=== PATIENT | female | born 1970 | race Caucasian/White ===

== ENCOUNTER → 2019-06-16 11:05 | Outpatient (BNVA) | payer OTHER, SELFPAY | PROVIDERS: Family Provider Nurse Practitioner Family; PCP Nurse Practitioner Family; Visit Provider Obstetrics & Gynecology | DX: N92.1 Excessive and frequent menstruation with irregular cycle (principal); N94.6 Dysmenorrhea, unspecified; I10 Essential (primary) hypertension | CPT/HCPCS: 82728; 83540; 83550; 84443; 85027 ==

== ENCOUNTER → 2019-06-27 14:53 | Outpatient (BNVA) | payer OTHER, SELFPAY | PROVIDERS: Family Provider Nurse Practitioner Family; PCP Nurse Practitioner Family; Visit Provider Obstetrics & Gynecology | DX: N92.0 Excessive and frequent menstruation with regular cycle (principal); N94.6 Dysmenorrhea, unspecified; N94.10 Unspecified dyspareunia | CPT/HCPCS: 76830; 76856 ==

== ENCOUNTER → 2019-10-06 11:12 | Outpatient (BNVA) | payer OTHER, SELFPAY | PROVIDERS: Family Provider Nurse Practitioner Family; PCP Nurse Practitioner Family; Visit Provider Obstetrics & Gynecology | DX: Z12.4 Encounter for screening for malignant neoplasm of cervix (principal) | CPT/HCPCS: 88175 ==

== ENCOUNTER 2019-11-07 13:39 | Observation (INO) | payer MEDICARE, SELFPAY ==
[2019-11-03 10:20] VITALS: BMI 34.3
[2019-11-03 10:42] LABS: Add Urine Microscopic? NO
[2019-11-03 10:52] LABS: Basophils # 0.1 10^3/uL (0.0-0.1); Basophils % 0.9 %; Eosinophils # 0.2 10^3/uL (0.0-0.8); Eosinophils % 1.5 %; Hematocrit 41.6 % (37.0-47.0); Hemoglobin 13.4 g/dL (11.5-15.3); Lymphocytes # 3.1 10^3/uL (0.8-4.8); Lymphocytes % 29.7 %; Mean Corpuscular HGB Conc 32.2 g/dL (30.0-36.0); Mean Corpuscular Hemoglobin 31.1 pg (28.0-34.0); Mean Corpuscular Volume 96.5 fL (81-99); Mean Platelet Volume 9.9 fL (7.4-10.4); Monocytes # 0.5 10^3/uL (0.2-0.9); Neutrophils # 6.61 10^3/uL (1.8-7.7); Neutrophils % 62.7 %; Nucleated Red Blood Cells % 0 %; Platelet Count 386 10^3/cmm (130-400); Red Blood Count 4.31 10^6/uL (4.1-5.3); Red Cell Distribution Width 13.3 % (12.1-15.1); White Blood Count 10.5 10^3/uL (4.0-10.0)
[2019-11-03 11:06] LABS: Bilirubin Urine Neg (NEGATIVE); Blood Urine Neg (Negative); Glucose Urine UA Norm (Normal); Ketones Urine Negative (Negative); Leukocyte Esterase Urine Negative (Negative); Nitrate Urine Negative (Negative); OR HCG Qualitative Urine Negative (Negative); Protein Urine Neg (Negative); Specific Gravity, Urine 1.005 (1.005-1.030); Urine Appearance Clear (CLEAR); Urine Color Yellow (Yellow); Urobilinogen Urine Norm (Negative); pH Urine 7 (5-7)
[2019-11-07] VITALS (21 sets, daily range): BP systolic 93–130; BP diastolic 58–81; PULSE 73–102; RESP 8–20; TEMP 36.2–36.9; O2SAT 93–100
[2019-11-07] MEDS: sodium chloride 0.9% 1,000 ML 30 ML IV (08:24)
[2019-11-07] MEDS: ketorolac 30 mg/mL INJ IVP ×2 (08:33→14:34)
--- NOTE | 2019-11-07 08:33 | P.ANESUD_ITS ---
Pre-Anesthetic Update Pre-Anesthetic Assessment: Date of Surgery/Procedure: 11/07/19 Preop Leonie gnosis: Uterine fibroid, Menorrhagia, Dysmenorrhea Proposed Procedure: Operation Date: 11/07/19 09:10 Proposed Procedures p Total Laparoscopic Hysterectomy 74792 D25.9 N92.9(Not Applicable) - Sameer Hatfield MD s Laparoscopic Salpingo Oophorectomy(Bilateral) - MD liz Ash Total Abdominal Hysterectomy(Not Applicable) - Sameer Hatfield MD Any changes to Pre-Anesthetic Assessment?: No Last Intake: Intake Last Liquid Date 11/07/19 Last Liquid Time 06:30 Last Solid Date 11/06/19 Last Solid Time 20:00 Vitals: Temperature 97.9 F 11/07/19 08:10 Temperature Source Temporal Artery S can 11/07/19 08:10 Pulse Rate 84 11/07/19 08:10 Respiratory Rate 16 11/07/19 08:10 Blood Pressure 93/74 11/07/19 08:10 Blood Pressure Estee n 80 11/07/19 08:10 Pulse Oximetry 98 11/07/19 08:10 Oxygen Delivery Me thod 11/07/19 08:10 Exam: Pre-Anes Outpt Exam: alert, oriented x 3, clear to auscultation bilaterally and regular rate & rhythm Cardiac Studies: No Data to Display
[2019-11-07] MEDS: phenazopyridine 100 mg Tablet 200 MG PO ×3 (08:47→20:10)
--- NOTE | 2019-11-07 09:33 | P.HPUD_ITS ---
Surgery/Procedure H&P Update DATE OF PROCEDURE: November 07, 2019 DATE H&P PERFORMED: 11/03/19 H&P UPDATE INFORMATION: I have reviewed H&P completed within last 30 days, I have examined patient prior to procedure, No changes to prior documentation and [place] [facility] [place] PREOP DIAGNOSIS: Uterine fibroid, Menorrhagia, Dysmenorrhea PLANNED PROCEDURE: Operation Date: 11/07/19 09:10 Proposed Procedures p Total Laparoscopic Hysterectomy 75959 D25.9 N92.9(Not Applicable) - MD liz Ash Laparoscopic Salpingo Oophorectomy(Bilateral) - MD liz Ash Total Abdominal Hysterectomy(Not Applicable) - Sameer Hatfield MD Related Problem List Diagnoses (1) Uterine fibroid: Qualifiers: Uterine leiomyoma location: intramural Qualified Code(s): D25.1 - Intramural leiomyoma of uterus (2) Menorrhagia: Qualifiers: Menorrahagia type: with irregular cycle Qualified Code(s): N92.1 - Excessive and frequent menstruation with irregular cycle (3) Dysmenorrhea:
--- NOTE | 2019-11-07 09:42 | P.ANESASSM_ITS ---
Pre-Anesthetic Assessment Pre-Anesthetic Assessment: Height/Weight: Height 1.52 m Weight 79.832 kg Temp Pulse Resp BP Pulse Ox 97.9 F 84 16 93/74 98 11/07/19 08:10 11/07/19 08:10 11/07/19 08:10 11/07/19 08:10 11/07/19 08:10 Preop Diagnosis: Uterine fibroid, Menorrhagia, Dysmenorrhea Proposed Procedure: Operation Date: 11/07/19 09:10 Proposed Procedures p Total Laparoscopic Hysterectomy 81832 D25.9 N92.9(Not Applicable) - Sameer Hatfield MD s Laparoscopic Salpingo Oophorectomy(Bilateral) - Sameer Hatfield MD s Total Abdominal Hysterectomy(Not Applicable) - Sameer Hatfield MD Familial anesthetic complications: None Was Beta Clemencia taken within 24 hours: N/A Last intake: Intake Last Liquid Date 11/07/19 Last Liquid Time 06:30 Last Solid Date 11/06/19 Last Solid Time 20:00 Social: Social History: No alcohol and No tobacco Exam: Pre-Anes Outpt Exam: alert, oriented x 3, clear to auscultation bilaterally and regular rate & rhythm Airway: Cervical ROM: Other (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) MP: 3 Dentition: Chipped Pulmonary: Pulmonary: None reported CV/HEM: CV/HEM: HTN : : None reported Hepatic: Hepatic: None reported GI: GI: None reported Metabolic: Metabolic: Morbid obesity Musc/skel: Musc/skel: None reported Neuropsych: Neuropsych: Seizure Comments: arnold chiari I - unable hyperextension Headaches from chirari and double vision sometimes d/t intracranial HTN Anesthetic Plan: ASA status: 3 Anesthesia: General Risk of > 500 ml blood loss (7ml/kg in children): No Meds/Allergies Current Medications: Current Medications Generic Name Dose Route Start Last Admin Trade Name Freq PRN Reason Stop Dose Admin Sodium Chloride 1,000 mls @ 30 ml s/hr 11/07/19 07:30 11/07/19 08:24 Sodium Chloride 0.9% IV 11/08/19 07:29 30 mls/hr .Q24H RAJI Administration PFSH Anesthesia PFSH: Medical History Arnold-Chiari malformation Chronic insomnia History of gastric bypass (~01/2019) Reports having had Russ-en-Y gastric bypass Hypertension Migraine headache Pseudotumor cerebri Surgical History History of bilateral tubal ligation (~08/1989) Performed at time of . Performed in [place], [place]. History of section (~08/1989) Repeat with tubal ligation. Performed in [place], [place]. History of section (~01/1988) Repeat. Performed in [place], [place]. History of section (~09/1984) Primary. Performed in [place], [place]. History of cholecystectomy (~08/1999) Laparoscopic. Performed at [facility] in [place], [place]. History of dilation and curettage (~08/2014) Treatment of abnormal uterine bleeding History of endometrial ablation (~11/2004) History of gastric bypass (~01/2019) Russ-en-Y gastric bypass (per patient). Performed by Dr. Rojas at [facility] in [place], [place]. Family History Family/Other Breast cancer Maternal aunt Father Diabetes Hypertension Grandmother Diabetes Maternal Social History Smoking and tobacco status: never smoked Alcohol intake: never Other details last substance use: Denies drug use. Female Reproductive History: Date of last menstrual period: 09/17/19 Data Anesthesia CBC & Chem 7: 11/03/19 10:37 Cardiac Studies: No Data to Display
--- NOTE | 2019-11-07 13:13 | PM.OP ---
Operative Report Date of procedure: November 07, 2019 Pre-op Diagnosis: Uterine fibroid, Menorrhagia, Dysmenorrhea Post-op Diagnosis: Uterine fibroid, Menorrhagia, Dysmenorrhea Procedure Done: Total laparoscopic hysterectomy with bilateral salpingo-oophorectomy, Cystoscopy Specimens removed/disposition: Uterus, cervix, bilateral tubes and ovaries Surgeon: Sameer Hatfield Planer Stone: None Anesthesia: General Estimated blood loss (mL): 100 IV fluids (mL): 1,600 Urine output (mL): 200 Complications: None Findings: Adhesions of the bladder to the lower uterine segment and scarring secondary to prior sections. Evidence of prior tubal ligation. Brief History: Patient is a 49-year-old female 4, para 3-0-1-3 who is on Depo-Provera for bleeding control. She had had a prior tubal ligation. She had presented to the office complaining of heavy bleeding. This is been present for years . She had had an endometrial ablation in 2004 which lightened the periods for a while but did not stop them altogether. Over time the bleeding slowly increased again. She had been evaluated in 2014 by another provider and had had a hysterectomy recommended. However she did not have it done at that time. She was then started on Depo-Provera for bleeding control. She presented to my office in 05/2019 reporting randomly occurring bleeding episodes while on the Depo-Provera. The bleeding would occur 2-3 times a month and would last for a few days up to a week. She had an ultrasound done which showed a suspected uterine fibroid. Because of continued bleeding on Depo-Provera and following an endometrial ablation, she is presenting for hysterectomy. She had had 3 prior sections and had minimal to no uterine prolapse which is the reason this is being done as a total laparoscopic surgery. Procedure: The patient was taken to the operating room where general anesthesia was obtained. She was prepped and draped in the usual sterile fashion in the dorsal supine position with legs in Joseph style stirrups. Sequential compression boots were placed prior to starting the case. Carter catheter was inserted and exam under anesthesia was performed. She was found to have minimal to no uterine prolapse.. Weighted speculum was placed in the vagina and the cervix was grasped with a single-tooth tenaculum. [employer] uterine manipulator size 35 was used.. The infraumbilical region was injected with 2% lidocaine with epinephrine. Skin incision was made with a knife in the lower edge of the navel and a size 10 trocar and sheath were inserted under direct visualization using an Optiview type technique. Trocar was removed and replaced with just the laparoscope confirming intra-abdominal placement. The anterior abdominal wall was inspected and noted to be free of adhesions. In the right and left lower quadrants, lateral to the inferior epigastric vessels, the skin was injected with 2% lidocaine with epinephrine. Skin incisions were made with the knife and a 5 mm trocar and sheath were inserted under direct visualization at each site. Approximately 2 cm above the pubic symphysis in the midline, the skin was injected with 2% lidocaine with epinephrine. Skin incision was made with a knife and a 5 mm trocar and sheath were inserted under direct visualization. The pelvis was thoroughly inspected. Ovaries were normal in appearance. She had evidence of prior tubal ligation. Scarring was present in the anterior cul-de-sac between the bladder and the anterior lower uterine segment. Using the Voyant sealing device, the left utero-ovarian ligament was sealed and cut and dissection carried along the underlying mesovarium mesosalpinx until the round ligament was reached. The round ligament was sealed and cut and the dissection carried along the lateral aspect of the uterus to approximately the level of the internal os. During this process adhesions between the bladder and the left side of the uterus were taken down. The broad ligament was and dissection carried over the lower uterine segment. Using the Voyant sealingdevice, the right utero-ovarian ligament was sealed and cut and dissection carried along the underlying mesovarium mesosalpinx until the round ligament was reached.. The round ligament was sealed and cut and the dissection carried along the lateral aspect of the uterus to approximate the level of the internal os. During this process adhesions between the bladder and the right side of the uterus were taken down. The broad ligament was and the dissection carried over the lower uterine segment to meet with the dissection from the contralateral side. The bladder was dissected away from the lower uterine segment. The uterine vessels were sealed at the level of the cervix and cut bilaterally. Using monopolar cautery with the hook attachment, the vagina was opened anteriorly to the edge of the cup of the uterine manipulator. Using the cup as a guide, the vagina was opened circumferentially around the cervix. Once the cervix was completely free from the vagina, the uterus was removed through the vagina. Minimal bleeding was present from the vaginal cuff. Using 2-0 PDO barbed suture, the cuff was closed in a running fashion . This was started on the right side and was carried across to the left side. Care was taken to incorporate the peritoneum posteriorly and the vaginal mucosa anteriorly and posteriorly into the closure. The cuff was noted to be hemostatic. Due to the degree of the peritonealization over the area of the bladder, 1 piece of Interceed was placed in an attempt to prevent/decrease adhesion formation. The pelvis was thoroughly irrigated and noted to be hemostatic. The areas of dissection were inspected under normal and low pressure at the end of the procedure. The abdomen was deflated and the ports removed. The 5 mm sites were reapproximated with skin glue. The umbilical site was closed with a deep stitch of 4-0 Vicryl suture followed by subcuticular closure of the skin. Skin glue was applied to the site. The vagina was inspected and the cuff was noted to be reapproximated well. The cuff itself was noted to be hemostatic vaginally. Due to the degree of adhesions over the bladder area decision was made to perform a cystoscopy. Carter catheter was removed and cystoscope inserted. Both ureters were noted to be effluxing urine well. No bladder lacerations were noted. No suture material was noted within the bladder. No bladder masses were noted. Bladder was drained and Carter catheter reinserted. Patient tolerated the procedures well. Sponge needle and instrument counts were correct. DRAINS: Carter catheter POSTOPERATIVE STATUS: The patient was transferred to the recovery room in satisfactory condition.
--- NOTE | 2019-11-07 13:20 | SUR.PHASEI ---
1318 PATIENT TO PACU FROM OR. RR EVEN AND UNLABORED. PWD. SPO2 100% ON SIMPLE MASK AT 8L. NICHOLS CATH IN PLACE, BLOOD NOTED IN URINE.
[2019-11-07] MEDS: ondansetron 2 mg/ML SDV 2 mL 4 MG IVP (13:32)
[2019-11-07] MEDS: fentaNYL 50 mcg/mL INJ 2mL IVP (13:38)
[2019-11-07] MEDS: meperidine 50 mg/mL INJ 12.5 MG IVP (13:43)
--- NOTE | 2019-11-07 14:05 | PC.NURSE ---
pt to room 203-1 from OR via stretcher. pt moved bed to bed without assistance. oriented to room/call light. plan of care discussed
--- NOTE | 2019-11-07 14:10 | SUR.PHASEI ---
1358 PATIENT TO OB AT THIS TIME. NO DISTRESS. PAIN AND NAUSEA IMPROVED. NICHOLS CATH IN PLACE, DRAINING REDDISH/YELLOW URINE.
[2019-11-07] MEDS: morphine 4 mg/mL SDV 1 mL IVP (14:33)
[2019-11-07] MEDS: dextrose 5%-lactated ringers 1,000 ML 125 ML IV ×2 (14:35→22:51)
[2019-11-07] MEDS: oxyCODONE-APAP 5-325 mg Tablet PO ×2 (16:35→21:14)
[2019-11-07] MEDS: docusate sodium 100 mg Capsule PO (17:47)
--- NOTE | 2019-11-08 00:26 | PC.NURSE ---
AT 0015 PT CALLED [employer]CH[employer]ICAL SALES REPRESENTATIVES INTO ROOM AND REPORTED PASSING OF FLATUS.
[2019-11-08 02:17] VITALS: RESP 16
[2019-11-08] MEDS: oxyCODONE-APAP 5-325 mg Tablet PO ×2 (02:17→08:14)
[2019-11-08 03:44] VITALS: BP 108/67; PULSE 99; RESP 16; TEMP 36.8; O2SAT 95
[2019-11-08 05:09] LABS: Hematocrit 33.7 % (37.0-47.0); Hemoglobin 10.9 g/dL (11.5-15.3); Mean Corpuscular HGB Conc 32.3 g/dL (30.0-36.0); Mean Corpuscular Hemoglobin 31.3 pg (28.0-34.0); Mean Corpuscular Volume 96.8 fL (81-99); Mean Platelet Volume 10.3 fL (7.4-10.4); Platelet Count 323 10^3/cmm (130-400); Red Blood Count 3.48 10^6/uL (4.1-5.3); Red Cell Distribution Width 13.2 % (12.1-15.1)
--- NOTE | 2019-11-08 07:01 | PM.DCS ---
Discharge Providers Date of Admission: 11/07/19 13:39 Date of Discharge: November 08, 2019 Attending Provider at Admission: Sameer Hatfield MD Attending Provider at Discharge: Sameer Hatfield MD Primary Care Provider: MIKY Calles Diagnoses at Discharge Discharge Diagnosis (1) Uterine fibroid: Status: Acute Qualifiers: Uterine leiomyoma location: intramural Qualified Code(s): D25.1 - Intramural leiomyoma of uterus (2) Menorrhagia: Status: Acute Qualifiers: Menorrahagia type: with irregular cycle Qualified Code(s): N92.1 - Excessive and frequent menstruation with irregular cycle (3) Dysmenorrhea: Status: Acute Reason for Visit Reason for Visit: Uterine Fibroid, Menorrhagia Hospital Course Hospital Course: Patient is a 49-year-old white female 4, para 3-0-1-3 who is status post tubal ligation. She is on Depo-Provera for bleeding control. She has been having heavy bleeding for years . She had had an endometrial ablation in 2004 which helped some but did not completely alleviate her bleeding. Since then her bleeding has slowly worsened again. She was started on Depo-Provera in an attempt to control her heavy bleeding but has now developed very sporadic bleeding which varies from light spotting to heavy bleeding and occurs several times a month. Because of the continued bleeding despite the ablation and Depo-Provera, she wished to proceed to hysterectomy. A total laparoscopic hysterectomy with bilateral salpingo-oophorectomy was performed. Following surgery she had some pain control issues. Otherwise she did well. She was continued on her usual home medications. On postoperative day 1, she reported doing much better. She stated her pain was controlled with the oral medications. She denied lightheadedness or dizziness with ambulation. She denied shortness of breath or chest pains. She reported passing flatus. She denied problems with urination. She stated that she had been having more headaches since the surgery but this is not uncommon for her as she has chronic headaches. Physical Exam: See below Plan Advance to regular diet for breakfast. May shower today. Discharge to home. Discharge instructions discussed with her. She is to follow-up in the office in 2 and 6 weeks following surgery. Physical Exam Const: COMMON NORMALS: no acute distress, average body habitus, alert and well nourished GENERAL APPEARANCE: well developed ORIENTATION/CONSCIOUSNESS: Yes oriented to person, Yes oriented to place and Yes oriented to time Resp: COMMON NORMALS: normal respiratory effort and clear to auscultation bilaterally AUSCULTATION: clear to auscultation bilaterally Cardio: COMMON NORMALS: regular rate, regular rhythm, No gallops present (Cardio), No murmurs present (Cardio) and No rub (Cardio) RATE: regular rate RHYTHM: regular rhythm GI: COMMON NORMALS: Soft to palpation, No hepatosplenomegaly present and no masses INSPECTION: Yes incision (Laparoscopy sites well approximated) AUSCULTATION: Yes normoactive bowel sounds PALPATION: Yes Soft to palpation, Yes Tenderness to palpation present (GI) (In the lower abdomen.), Yes No hepatosplenomegaly present and No Hernia present : EXTERNAL FEMALE EXAM: No Hernia present Extremity: COMMON NORMALS: no clubbing, cyanosis or edema and no calf tenderness Neuro: SENSORIUM/ORIENTATION: Yes alert, Yes oriented to person, Yes oriented to place and Yes oriented to time Psych: COMMON NORMALS: normal affect MOOD & AFFECT: Yes euthymic mood Urinary Catheter Management^: Carter: Cath Placed During This Visit: yes, but has since been removed by the nurse Reason for Continuing Indwelling Catheter: Decision to DC Catheter Urinary Catheter Date of Insertion: 11/07/19 Urinary Catheter Time of Insertion: 10:41 Date Urinary Catheter Removed: 11/07/19 Time Urinary Catheter Discontinued: 16:40 Discharge Data Data Completed and Pending: Pending at discharge Category Date Time Status ES surgery / GI i mages Routine Exams 11/07/19 08:19 Taken Pathology: Surgic al [PTH] Routine Pth 11/07/19 13:13 Ordered Labs from last 24 hours 11/08/19 11/07/19 04:50 08:55 WBC 15.0 H RBC 3.48 L Hgb 10.9 L Hct 33.7 L MCV 96.8 MCH 31.3 MCHC 32.3 RDW 13.2 Plt Count 323 MPV 10.3 Blood Type O Positive Rho(D) Type Positive Antibody Screen Negative Vitals: Last Vital Signs Temp 98.3 F 11/08/19 03:44 Pulse 99 11/08/19 03:44 Resp 16 11/08/19 03:44 BP 108/67 11/08/19 03:44 Pulse Ox 95 11/08/19 03:44 Discharge Plan Discharge Patient Disposition: Home, Self-Care Condition: Stable Prescriptions: New oxycodone-acetaminophen 5-325 mg Tablet 1 - 2 tab PO Q6H MDD 5 pills per day PRN (Reason: Moderate To Severe Pain) Qty: 30 RF: 0 ibuprofen 800 mg Tablet 800 mg PO TID PRN (Reason: pain) Qty: 40 RF: 0 Continued gabapentin 300 mg capsule 300 mg PO .COMPLEX Qty: 120 RF: 3 topiramate [Topamax] 100 mg tablet 100 mg PO BID RF: 0 tizanidine 4 mg capsule 4 mg PO .four times daily PRN (Reason: muscle spasticity) Qty: 120 RF: 0 nortriptyline 10 mg capsule 10 mg PO BEDTIME RF: 0 Lunesta 3 mg tablet 3 mg PO BEDTIME PRN (Reason: insomnia) RF: 0 Discontinued medroxyprogesterone 150 mg/mL syringe 150 mg IM ONCE Qty: 1 RF: 1 Discharge Orders: Discharge Order (Routine); Ordered 11/08/19 Ordered By: Sameer Hatfield Referrals: Sameer Hatfield MD [Physician] - 11/20/19 1:45 pm (2 week postoperative appointment on 11/19 at 1:45 6 week postoperative appointment on 12/17 at 12:45) Discharge Diet: Regular Discharge Activity: Limit activity as instructed Patient Instructions: OB Abdominal Surgery - [facility] Activity Restrictions/Additional Instructions: May use MiraLax for treatment/prevention of constipation, Follow instruction on bottle Discharge Attestations Time Spent in Discharge Care*: less than 30 min Quality Metrics Clinical Quality Measures During this hospital stay, did patient experience: None Coding Level of Care Code Acute Dental Laboratory Worker for Chg Fwd Diagnoses Uterine fibroid D25.1 Uterine leiomyoma location: intramural Menorrhagia N92.1 Menorrahagia type: with irregular cycle Dysmenorrhea N94.6
[2019-11-08 08:14] VITALS: RESP 16
[2019-11-08] MEDS: docusate sodium 100 mg Capsule PO (08:14)
[2019-11-08] MEDS: phenazopyridine 100 mg Tablet 200 MG PO (08:14)
[2019-11-08 08:21] VITALS: BP 126/75; PULSE 102
[2019-11-08 09:00] VITALS: RESP 16; TEMP 36.9
== END 2019-11-08 09:00 | disposition home or self-care (01) ==
LOC: OBGYN 13:39
PROVIDERS: Admitting Provider Obstetrics & Gynecology; PCP Registered Nurse; Visit Provider Obstetrics & Gynecology
PROC: 0UT94ZZ Resection of Uterus, Percutaneous Endoscopic Approach (ICD-10-PCS; CPT 58571; principal; 2019-11-07 09:10)
PROC: (CPT 58661; 2019-11-07 09:10)
PROC: 0TJB8ZZ Inspection of Bladder, Via Natural or Artificial Opening Endoscopic (ICD-10-PCS; CPT 52000; 2019-11-07 09:10)
DX: D25.9 Leiomyoma of uterus, unspecified (principal); N92.1 Excessive and frequent menstruation with irregular cycle; N94.6 Dysmenorrhea, unspecified; I10 Essential (primary) hypertension; E66.01 Morbid (severe) obesity due to excess calories; Z68.34 Body mass index [BMI] 34.0-34.9, adult
CPT/HCPCS: 58571; 12345; 36415; 81003; 84703; 85025; 85027; 86850; 86900; 87086; 88307; 96360; 96361; 96374; 96375; G0378; J0690; J1100; J1885; J2175; J2270; J2405; J2704; J3010; J3490; J7030

== ENCOUNTER 2019-12-21 14:50 | Outpatient (CLI) | payer MEDICARE, SELFPAY ==
--- NOTE | 2019-12-21 15:11 | MM_ITS ---
WS: [id number] BILATERAL SCREENING DIGITAL MAMMOGRAM WITH CAD HISTORY: SCREENING COMPARISON: None available. Bilateral CC and MLO views submitted. Computer aided detection analyzed. Breast composition: There are scattered areas of fibroglandular density. No suspicious masses, microc alcifications or architectural distortion. MM/[place] [id number] IMPRESSION: BI-RADS: 1-Negative FOLLOW UP: 1 Year Follow-up
== END 2019-12-21 14:51 | disposition home or self-care (01) ==
LOC: RADSHAW 14:55
PROVIDERS: PCP Registered Nurse; Visit Provider Registered Nurse
DX: Z12.31 Encounter for screening mammogram for malignant neoplasm of breast (principal)
CPT/HCPCS: 77067

== ENCOUNTER → 2020-08-06 13:35 | Outpatient (BNVA) | payer MEDICARE, SELFPAY | PROVIDERS: PCP Registered Nurse; Visit Provider Obstetrics & Gynecology | DX: R68.82 Decreased libido (principal) | CPT/HCPCS: 84402 ==

== ENCOUNTER → 2020-10-08 09:30 | Outpatient (BNVA) | payer MEDICARE, SELFPAY | PROVIDERS: PCP Registered Nurse; Visit Provider Obstetrics & Gynecology | DX: R68.82 Decreased libido (principal) | CPT/HCPCS: 84403 ==

== ENCOUNTER → 2020-11-06 09:16 | Outpatient (BNVA) | payer MEDICARE, SELFPAY | PROVIDERS: PCP Registered Nurse; Visit Provider Obstetrics & Gynecology | DX: R68.82 Decreased libido (principal) | CPT/HCPCS: 84403 ==

== ENCOUNTER → 2021-11-06 08:12 | Outpatient (BNVA) | payer MEDICARE, SELFPAY | PROVIDERS: PCP Registered Nurse; Visit Provider Nurse Practitioner Family | DX: N39.0 Urinary tract infection, site not specified (principal) | CPT/HCPCS: 81000 ==

== ENCOUNTER → 2021-12-18 13:40 | Outpatient (BNVA) | payer MEDICARE, SELFPAY | PROVIDERS: PCP Registered Nurse; Visit Provider Registered Nurse | DX: N39.0 Urinary tract infection, site not specified (principal); J01.40 Acute pansinusitis, unspecified | CPT/HCPCS: 81000 ==

== ENCOUNTER 2023-04-13 13:40 | Outpatient (CLI) | payer MEDICARE, SELFPAY ==
--- NOTE | 2023-04-13 13:30 | MM_ITS ---
WS: [id number] BILATERAL 3D TOMOSYNTHESIS DIGITAL SCREENING MAMMOGRAPHY WITH CAD CLINICAL INFORMATION: Z12.39 - Encounter for other screening for malignant neop... HISTORY: Screening mammogram. No current complaints. COMPARISON: 2021 TECHNIQUE: Bilateral CC and MLO views. FINDINGS: The breasts are composed of heterogeneous fibroglandular density tissue, which can limit the detectio n of small underlying mass lesions. No suspicious mass, asymmetry, calcifications, or architectural d istortion. No evidence of malignancy. Vascular calcification IMPRESSION: MM/[place] [id number] BI-RADS: 2-Benign FOLLOW UP: 1 Year Follow-up Recommend return to annual screening mammography.
== END 2023-04-13 13:41 | disposition home or self-care (01) ==
LOC: MOBLMAM 13:43
PROVIDERS: PCP Nurse Practitioner Women's Health; Visit Provider Nurse Practitioner Women's Health
DX: Z12.31 Encounter for screening mammogram for malignant neoplasm of breast (principal)
CPT/HCPCS: 77063; 77067

== ENCOUNTER → 2023-05-04 11:22 | Outpatient (BNVA) | payer MEDICARE, SELFPAY | PROVIDERS: PCP Registered Nurse; Visit Provider Registered Nurse | DX: Z00.00 Encounter for general adult medical examination without abnormal findings (principal); Q07.00 Arnold-Chiari syndrome without spina bifida or hydrocephalus; G43.C1 Periodic headache syndromes in child or adult, intractable; I10 Essential (primary) hypertension; E53.8 Deficiency of other specified B group vitamins; E78.5 Hyperlipidemia, unspecified; Z12.11 Encounter for screening for malignant neoplasm of colon; M81.0 Age-related osteoporosis without current pathological fracture; Z79.890 Hormone replacement therapy; Z71.85 Encounter for immunization safety counseling | CPT/HCPCS: 80053; 80061; 82607; 85025; 86140 ==

== ENCOUNTER → 2023-05-17 07:56 | Outpatient (BNVA) | payer MEDICARE, SELFPAY | PROVIDERS: PCP Registered Nurse; Referring Provider Registered Nurse; Visit Provider Surgery | DX: Z12.11 Encounter for screening for malignant neoplasm of colon (principal) | CPT/HCPCS: 99024; 99213 ==

== ENCOUNTER 2023-07-07 06:56 | Day surgery (SDC) | payer MEDICARE, SELFPAY ==
[2023-07-07 07:04] VITALS: BMI 3515.0
[2023-07-07 07:08] VITALS: BP 109/78; PULSE 79; RESP 16; TEMP 36.4; O2SAT 98
--- NOTE | 2023-07-07 07:19 | ANES.PREANE2 ---
Pre-Anesthetic Assessment Height/Weight: Height 12.7 cm Weight 56.699 kg Temp Pulse Resp BP Pulse Ox O2 Del Method 97.6 F 79 16 109/78 98 Room Air 07/07/23 07:08 07/07/23 07:08 07/07/23 07:08 07/07/23 07:08 07/07/23 07:08 07/07/23 07:08 Operation Date: 07/07/23 07:55 Proposed Procedures p 09705 colon G0121 screen colon A risk Z12.11(Not Applicable) - Maynor Alicia MD Familial anesthetic complications: NOne Was Beta Clemencia taken within 24 hours: N/A Was Clonidine taken within 24 hours: N/A Last intake: Intake Last Liquid Date 07/06/23 Last Liquid Time 21:30 Last Solid Date 07/05/23 Last Solid Time 20:00 Social No alcohol and No tobacco Exam alert, oriented x 3, clear to auscultation bilaterally and regular rate & rhythm Airway Mallampati: Class II Dentition: other (missing) CV/HEM Hypertension Neuropsych arnold chiari malformation - symptomatic with neck hyperextension Anesthetic Plan ASA status: 2 Anesthesia: MAC Risk of > 500 ml blood loss (7ml/kg in children): No Other Pertinent Information Will keep neck in neutral position if requires intubation Medications/Allergies Home Medications Medication Instructions Recorded Confirmed Last Taken Type multivitamin 1 cap PO DAILY 12/18/19 07/05/23 07/05/23 History galcanezumab-gnlm 120 mg/mL See Rx Instructions SUBCUT .COMPLEX 07/01/20 07/07/23 1 Week Ago History subcutaneous pen injector ~06/30/23 (Emgality Pen) rimegepant 75 mg disintegrating 75 mg PO PRN PRN migraine headache 08/06/20 07/05/23 07/05/23 History tablet (Nurtec ODT) kiqpahyppy-wwlwfejrpnlhq-ofbwjzzv 1 tab PO Q6H PRN Migraine Headache 03/01/23 07/05/23 07/05/23 History 50 mg-325 mg-40 mg tablet estradiol 0.5 mg tablet 0.5 mg PO DAILY #90 tabs 03/01/23 07/05/23 07/05/23 Rx eszopiclone 3 mg tablet (Lunesta) 3 mg PO BEDTIME PRN insomnia #30 03/23/23 07/05/23 07/05/23 Rx tabs esterified 1 tab PO DAILY low testosterone 04/15/23 07/05/23 07/05/23 Rx estrogens-methyltestosterone 0.625 #30 tabs mg-1.25 mg tablet gabapentin 300 mg capsule See Rx Instructions .Route 05/27/23 07/05/23 07/05/23 Rx .COMPLEX #120 caps nortriptyline 10 mg capsule 10 mg PO DAILY 07/05/23 07/05/23 07/05/23 History tizanidine 4 mg tablet 4 mg PO QID PRN migraines #120 tabs 07/05/23 07/06/23 07/05/23 Rx topiramate 50 mg capsule,extended 50 mg PO DAILY 07/05/23 07/05/23 07/05/23 History release 24 hr (Trokendi XR) Allergies Allergy/AdvReac Type Severity Reaction Status Date / Time NSAIDS (Non-Steroidal Allergy Unknown Verified 05/17/23 07:56 Anti-Inflamma sumatriptan [From Imitrex] Allergy Unknown Verified 05/17/23 07:56 tramadol Allergy rash, Verified 05/17/23 07:56 itching hydrocodone AdvReac See below Verified 05/17/23 07:56 [facility] Anesthesia Medical History Chronic insomnia Hypertension History of gastric bypass (~01/2019) Reports having had Russ-en-Y gastric bypass Migraine headache Pseudotumor cerebri Arnold-Chiari malformation Surgical History (Updated 05/17/23 @ 08:02 by EMEKA Cerrato) S/p bilateral carpal tunnel release S/P laparoscopic hysterectomy (11/07/19) TLH/BSO. Dx: Uterine fibroid, Menorrhagia. Performed [place] Dr. Hatfield [place] [facility] [place], [place]. History of endometrial ablation (~11/2004) History of dilation and curettage (~08/2014) Treatment of abnormal uterine bleeding History of gastric bypass (~01/2019) Russ-en-Y gastric bypass (per patient). Performed by Dr. Rojas at [facility] in [place], [place]. History of bilateral tubal ligation (~08/1989) Performed at time of . Performed in [place], [place]. History of section (~09/1984) Primary. Performed in [place], [place]. History of section (~01/1988) Repeat. Performed in [place], [place]. History of section (~08/1989) Repeat with tubal ligation. Performed in [place], [place]. History of cholecystectomy (~08/1999) Laparoscopic. Performed at [facility] in [place], [place]. Family History Family/Other Breast cancer Maternal aunt Father Diabetes Hypertension Grandmother Diabetes Maternal Social History Smoking and tobacco/nicotine status: never used tobacco/nicotine Substance/Drug Use: never Do you think of yourself as: Straight/Heterosexual Data Anesthesia Cardiac Studies: No Data to Display
[2023-07-07] MEDS: sodium chloride 0.9% 1,000 ML 30 ML IV (07:24)
--- NOTE | 2023-07-07 08:01 | P.HP_ITS ---
Same Day Surgery H&P Indication for Procedure/HPI DATE OF PROCEDURE: July 07, 2023 CHIEF COMPLAINT/INDICATIONFOR SURGICAL PROCEDURE: need for screening colonoscopy PREOP DIAGNOSIS: need for screening colonoscopy PLANNED PROCEDURE: Operation Date: 07/07/23 07:55 Proposed Procedures p 18904 colon G0121 screen colon A risk Z12.11(Not Applicable) - Maynor Alicia MD Medications/Allergies* Home Medications Medication Instructions Recorded Confirmed Type multivitamin 1 cap PO DAILY 12/18/19 07/05/23 History galcanezumab-gnlm 120 mg/mL See Rx Instructions SUBCUT .COMPLEX 07/01/20 07/07/23 History subcutaneous pen injector (Emgality Pen) rimegepant 75 mg disintegrating 75 mg PO PRN PRN migraine headache 08/06/20 07/05/23 History tablet (Nurtec ODT) mqczceujsr-llhkfimiemxkl-qhvjveku 1 tab PO Q6H PRN Migraine Headache 03/01/23 07/05/23 History 50 mg-325 mg-40 mg tablet nortriptyline 10 mg capsule 10 mg PO DAILY 07/05/23 07/05/23 History topiramate 50 mg capsule,extended 50 mg PO DAILY 07/05/23 07/05/23 History release 24 hr (Trokendi XR) Allergies/Adverse Reactions Allergy/AdvReac Type Severity Reaction Status Date / Time NSAIDS (Non-Steroidal Allergy Unknown Verified 05/17/23 07:56 Anti-Inflamma sumatriptan [From Imitrex] Allergy Unknown Verified 05/17/23 07:56 tramadol Allergy rash, Verified 05/17/23 07:56 itching hydrocodone AdvReac See below Verified 05/17/23 07:56 Current Medications: Generic Name Dose Route Start Last Admin Trade Name Freq PRN Reason Stop Dose Admin Sodium Chloride 1,000 mls @ 30 mls/hr 07/07/23 07:15 07/07/23 07:24 Sodium Chloride 0.9% IV 30 mls/hr .Q24H RAJI Administration Pertinent History/Comorbid Conditions* Medical History (Updated 05/04/23 @ 10:53 by MIKY Calles) Chronic insomnia Hypertension History of gastric bypass (~01/2019) Reports having had Russ-en-Y gastric bypass Migraine headache Pseudotumor cerebri Arnold-Chiari malformation Surgical History (Updated 11/24/19 @ 19:57 by Sameer Hatfield MD) S/p bilateral carpal tunnel release S/P laparoscopic hysterectomy (11/07/19) TLH/BSO. Dx: Uterine fibroid, Menorrhagia. Performed by Dr. Hatfield at [facility] in [place], [place]. History of endometrial ablation (~11/2004) History of dilation and curettage (~08/2014) Treatment of abnormal uterine bleeding History of gastric bypass (~01/2019) Russ-en-Y gastric bypass (per patient). Performed by Dr. Rojas at [facility] in [place], [place]. History of bilateral tubal ligation (~08/1989) Performed at time of . Performed in [place], [place]. History of section (~09/1984) Primary. Performed in [place], [place]. History of section (~01/1988) Repeat. Performed in [place], [place]. History of section (~08/1989) Repeat with tubal ligation. Performed in [place], [place]. History of cholecystectomy (~08/1999) Laparoscopic. Performed at [facility] in [place], [place]. Family History (Updated 06/20/19 @ 08:37 by Sameer Hatfield MD) Diabetes Father Grandmother Maternal Breast cancer Family/Other Maternal aunt Hypertension Father Social History Smoking and tobacco/nicotine status: never used tobacco/nicotine Substance/Drug Use: never Do you think of yourself as: Straight/Heterosexual Pertinent Exam Findings alert, oriented x 3, clear to auscultation bilaterally and regular rate & rhythm Recommendations Surgery/Procedure today Coding Level of Care Code Acute Code for Chg Fwd
[2023-07-07 08:43] VITALS: BP 102/72; PULSE 75; RESP 12; TEMP 36.4; O2SAT 100
[2023-07-07 08:52] VITALS: BP 112/77; PULSE 83; RESP 16; O2SAT 97
--- NOTE | 2023-07-07 09:10 | ANE.PACU2 ---
Inpatient post-anesthesia follow up: Airway intact: Yes Vital signs: Temperature 97.6 F Pulse Rate 83 Respiratory Rate 16 Blood Pressure 112/77 Pulse Oximetry 97 Oxygen Delivery Me thod Room Air Oxygen Flow Rate Fraction of Inspir ed Oxygen Hydration adequate: Yes Nausea and vomiting: No Pain level: 1 Mental status: Baseline
== END 2023-07-07 09:10 | disposition home or self-care (01) ==
PROVIDERS: PCP Registered Nurse; Visit Provider Surgery
PROC: 0DJD8ZZ Inspection of Lower Intestinal Tract, Via Natural or Artificial Opening Endoscopic (ICD-10-PCS; CPT 45378; principal; 2023-07-07 07:55)
DX: Z12.11 Encounter for screening for malignant neoplasm of colon (principal); I10 Essential (primary) hypertension; Z98.84 Bariatric surgery status
CPT/HCPCS: 45378; J2704; J7030

== ENCOUNTER → 2024-02-10 10:43 | Outpatient (BNVA) | payer MEDICARE, SELFPAY | PROVIDERS: PCP Registered Nurse | DX: R39.89 Other symptoms and signs involving the genitourinary system (principal); N39.0 Urinary tract infection, site not specified | CPT/HCPCS: 81000; 87086 ==

== ENCOUNTER → 2024-02-16 07:57 | Outpatient (BNVA) | payer MEDICARE, SELFPAY | PROVIDERS: PCP Registered Nurse; Visit Provider Registered Nurse | DX: N39.0 Urinary tract infection, site not specified (principal) | CPT/HCPCS: 81000 ==